=== PATIENT | female | born 1935 | race Caucasian/White ===

== ENCOUNTER 2017-10-07 18:17 | Emergency (ER) | payer MEDICARE, BC ==
[2017-10-07 18:39] VITALS: RESP 18
[2017-10-07] MEDS ORDERED: SODIUM CHLORIDE 0.9% 1,000 ML IV STA (19:10)
[2017-10-07] MEDS ORDERED: SODIUM CHLORIDE 0.9% 500 ML IV STA (19:10)
--- NOTE | 2017-10-07 19:14 | ED ---
General Adult HPI - General Chief complaint: Nausea/Vomiting/Diarrhea Stated complaint: Diarrhea Time Seen by Provider: 10/07/17 18:51 Source: patient, family, RN notes reviewed Mode of arrival: ambulatory Limitations: no limitations - History of Present Illness Initial comments: Chief complaint and history of present illness is a 2-year-old female here with family. The patient reports that she's had watery diarrhea for 3 weeks. If she eats or drinks anything it just runs right through her. Denies any abdominal pain. Has not noticed any blood. - Related Data Home Medications Medication Instructions Recorded Confirmed ALPRAZolam [Xanax] 0.25 mg PO TID PRN 02/17/14 02/18/14 Diclofenac Sodium [Voltaren] 75 mg PO BID 02/17/14 02/18/14 Quinapril/Hydrochlorothiazide 1 each PO DAILY 02/17/14 02/18/14 [Accuretic 20-12.5 mg Tablet] amLODIPine/ATORVASTATIN [Caduet 10 1 each PO DAILY 02/17/14 02/18/14 mg-10 mg Tablet] traMADol HCl [Ultram] 50 mg PO TID PRN 02/17/14 02/18/14 Previous Rx's Medication Instructions Recorded Ciprofloxacin HCl [Cipro] 500 mg PO Q12HR #6 tablet 10/07/17 Allergies Allergy/AdvReac Type Severity Reaction Status Date / Time morphine AdvReac Nausea & Verified 10/07/17 18:39 Vomiting Review of Systems ROS Statement: Those systems with pertinent positive or pertinent negative responses have been documented in the HPI. Review of systems. Patient denies any headache no visual acuity no chest pain or shortness of breath no abdominal pain just loose stool. She has tried Pepto- Bismol, Kaopectate and Imodium without any relief. Denies having had any antibiotics prior to the beginning of this. No analysis sick with similar problems in the family. All systems are reviewed. Past medical problems significant for breast cancer 4 years ago she also had a benign brain tumor removed. The patient's other problems include hyperlipidemia, hypertension osteoarthritis. The patient's surgeries include breast surgery, removal of a benign brain tumor, total right hip, partial hysterectomy. The patient's ALLERGIES are to morphine. Nonsmoker nondrinker. ROS Other: All systems not noted in ROS Statement are negative. Past Medical History Past Medical History: Cancer, Eye Disorder, Hearing Disorder / Deafness, Hyperlipidemia, Hypertension, Osteoarthritis (OA) Additional Past Medical History / Comment(s): CURRENT BREAST CA. HX BENIGN BRAIN TUMOR; HX CATARACTS History of Any Multi-Drug Resistant Organisms: None Reported Past Surgical History: Bladder Surgery, Hysterectomy, Joint Replacement Additional Past Surgical History / Comment(s): RT BREAST BX; EXC BENIGN BRAIN TUMOR 01/2014; TOTAL RT HIP; EXC TROY CATARACTS Past Anesthesia/Blood Transfusion Reactions: No Reported Reaction Past Psychological History: Depression Smoking Status: Never smoker Past Alcohol Use History: None Reported Past Drug Use History: None Reported General Exam - General Exam Comments Initial Comments: General: The patient is awake and alert, here because she's had loose stool for 3 weeks. A time she eats or drinks anything it runs right through her. Denying pain. Vital signs temperature 99.5 pulse 100 respiratory rate 18 pulse ox 3 on 2 L. Eye: Pupils are equal, round and reactive to light, extra-ocular movements are intact ; there is normal conjunctiva bilaterally. No signs of icterus. History of cataract removal. Ears, nose, mouth and throat: There are moist mucous membranes and no oral lesions. Neck: The neck is supple, there is no tenderness no anterior cervical lymphadenopathy. Cardiovascular: There is a regular rate and rhythm. Holosystolic murmur, known to the patient. Respiratory: Lungs are clear to auscultation, respirations are non-labored, breath sounds are equal. No wheezes, stridor, rales, or rhonchi. Gastrointestinal: Soft, non-distended, non-tender abdomen without masses or organomegaly noted. There is no rebound or guarding present. No CVA tenderness. Bowel sounds increased. No organomegaly no pain with deep palpation. Back: Denies back pain. Musculoskeletal: Normal ROM, no tenderness, There is no pedal edema. There is no calf tenderness or swelling. Sensation intact. Pulses equal bilaterally 2+. Neurological: No neuro deficits, no dizziness, no numbness no tingling. Skin: No complaints of any skin rash or infection. Psychiatric: Cooperative, Limitations: no limitations Course Vital Signs 10/07/17 18:36 Temperature 99.5 F Pulse Rate 100 Respiratory 18 Rate Blood Pressure 146/76 O2 Sat by Pulse 93 L Oximetry Medical Decision Making - Medical Decision Making Medical decision making; is a 82-year-old female here with a complaint of loose stool for 3 weeks. No abdominal pain. No nausea. Labs show white count of 10 hemoglobin 15 hematocrit 46. Potassium 4.3 with a BUN 20 creatinine 0.6 with a GFR 83. The patient's blood sugars 106. Amylase lipase normal. Chest x-ray is done AP and lateral view and reviewed by radiologist his impression is scattered senescent parenchymal changes are noted. Hyperinflation compatible COPD. No evidence for infiltrate. No evidence for atelectasis. Heart size is normal. Mediastinal structures are stable and grossly unremarkable. Moderate fixed hiatal hernia. No evidence for hilar prominence. Degenerative change dorsal spine. Impression no evidence for acute pulmonary disease. As read by Dr. Aragon The patient did eventually provide a stool sample but was moderately formed. Not runny and watery like she described at home. The plan at this time the stool was collected will be sent for culture and sensitivity. Also the patient will this time receive Cipro 500 she's received his 1 twice a day for 3 days. We did discuss infectious diarrhea etc. as well as traveler's diarrhea. Patient was advised to continue with Pepto-Bismol but not Imodium. Increase her fluids and consider high starches like rice to help binder. Advised follow- up with family physician - Lab Data Result diagrams: 10/07/17 18:50 10/07/17 18:50 Lab Results 10/07/17 10/07/17 Range/Units 18:50 18:50 WBC 10.3 (3.8-10.6) k/uL RBC 5.30 (3.80-5.40) m/uL Hgb 15.5 (11.4-16.0) gm/dL Hct 46.8 H (34.0-46.0) % MCV 88.3 (80.0-100.0) fL MCH 29.2 (25.0-35.0) pg MCHC 33.1 (31.0-37.0) g/dL RDW 13.2 (11.5-15.5) % Plt Count 756 H (150-450) k/uL Neutrophils % 70 % Lymphocytes % 17 % Monocytes % 7 % Eosinophils % 3 % Basophils % 1 % Neutrophils # 7.2 (1.3-7.7) k/uL Lymphocytes # 1.8 (1.0-4.8) k/uL Monocytes # 0.7 (0-1.0) k/uL Eosinophils # 0.3 (0-0.7) k/uL Basophils # 0.1 (0-0.2) k/uL Sodium 144 (137-145) mmol/L Potassium 4.3 (3.5-5.1) mmol/L Chloride 103 (98-107) mmol/L Carbon Dioxide 25 (22-30) mmol/L Anion Gap 16 mmol/L BUN 20 H (7-17) mg/dL Creatinine 0.64 (0.52-1.04) mg/dL Est GFR (CKD-EPI)AfAm >90 (>60 ml/min/1.73 sqM) Est GFR (CKD-EPI)NonAf 83 (>60 ml/min/1.73 sqM) Glucose 104 H (74-99) mg/dL Calcium 11.1 H (8.4-10.2) mg/dL Total Bilirubin 0.8 (0.2-1.3) mg/dL AST 26 (14-36) U/L ALT 21 (9-52) U/L Alkaline Phosphatase 83 (38-126) U/L Total Protein 7.4 (6.3-8.2) g/dL Albumin 4.7 (3.5-5.0) g/dL Amylase 62 (30-110) U/L Lipase 173 (23-300) U/L Disposition Clinical Impression: Diarrhea Disposition: HOME SELF-CARE Condition: Fair Instructions: Irritable Bowel Syndrome (ED), Chronic Diarrhea (ED), Nutrition Tips for Relief of Diarrhea (ED) Additional Instructions: Increase fluids. Continue with Pepto-Bismol. Take Cipro 1 tablet twice day for 3 days. Call for results of the stool culture. Follow-up with family physician. Prescriptions: Ciprofloxacin HCl [Cipro] 500 mg PO Q12HR #6 tablet Is patient prescribed a controlled substance at d/c from ED?: No Referrals: Esdras Reynolds MD [Primary Care Provider] - 1-2 days Time of Disposition: 22:09
[2017-10-07 19:22] LABS: Basophils # (A) 0.1 k/uL (0-0.2); Basophils % (A) 1 %; Eosinophils # (A) 0.3 k/uL (0-0.7); Eosinophils % (A) 3 %; HCT 46.8 % (34.0-46.0); HGB 15.5 gm/dL (11.4-16.0); Lymphocytes # (A) 1.8 k/uL (1.0-4.8); Lymphocytes % (A) 17 %; MCH 29.2 pg (25.0-35.0); MCHC 33.1 g/dL (31.0-37.0); MCV 88.3 fL (80.0-100.0); Mean Platelet Volume 8.1; Monocytes # (A) 0.7 k/uL (0-1.0); Monocytes % (A) 7 %; Neutrophils # (A) 7.2 k/uL (1.3-7.7); Neutrophils % (A) 70 %; Platelet Count 756 k/uL (150-450); RDW 13.2 % (11.5-15.5); WBC 10.3 k/uL (3.8-10.6)
[2017-10-07 19:32] LABS: ALT 21 U/L (9-52); AST 26 U/L (14-36); Albumin 4.7 g/dL (3.5-5.0); Alkaline Phosphatase 83 U/L (38-126); Amylase 62 U/L (30-110); Anion Gap 16 mmol/L; Blood Urea Nitrogen 20 mg/dL (7-17); Calcium 11.1 mg/dL (8.4-10.2); Carbon Dioxide 25 mmol/L (22-30); Chloride 103 mmol/L (98-107); Glucose 104 mg/dL (74-99); Lipase 173 U/L (23-300); Potassium 4.3 mmol/L (3.5-5.1); Sodium 144 mmol/L (137-145); Total Bilirubin 0.8 mg/dL (0.2-1.3); Total Protein 7.4 g/dL (6.3-8.2)
--- NOTE | 2017-10-07 19:42 | XR ---
EXAMINATION TYPE: XR chest 2V DATE OF EXAM: 10/07/2017 COMPARISON: NONE HISTORY: Shortness of breath TECHNIQUE: Frontal and lateral views of the chest are obtained. FINDINGS: Scattered senescent parenchymal changes noted. Hyperinflation compatible with COPD. No evidence for infiltrate. No evidence for atelectasis. Heart size is stable. Mediastinal structures are stable and grossly unremarkable. Moderate fixed hiatal hernia. No evidence for hilar prominence. Degenerative changes dorsal spine. IMPRESSION: 1. No evidence for acute pulmonary disease.
[2017-10-07] MEDS ORDERED: CIPROFLOXACIN HCL 500 MG TAB PO STA (22:06)
[2017-10-07 22:15] VITALS: BP 161/77; PULSE 77; TEMP 97.6
== END 2017-10-07 22:22 | disposition home or self-care (01) ==
LOC: EC 18:17
DX: R19.7 Diarrhea, unspecified (principal); R91.8 Other nonspecific abnormal finding of lung field; C50.919 Malignant neoplasm of unspecified site of unspecified female breast; E78.5 Hyperlipidemia, unspecified; I10 Essential (primary) hypertension; M19.90 Unspecified osteoarthritis, unspecified site; H91.90 Unspecified hearing loss, unspecified ear; Z79.1 Long term (current) use of non-steroidal anti-inflammatories (NSAID); Z79.899 Other long term (current) drug therapy; Z88.5 Allergy status to narcotic agent
CPT/HCPCS: 36415; 71046; 80053; 82150; 82272; 83690; 85025; 87045; 87046; 96360; 96361; 99284